=== PATIENT | female | born 2000 | race Hispanic/Latino ===

== ENCOUNTER 2022-01-17 20:47 | Emergency (ER) | payer BC ==
[2022-01-17 21:52] LABS: Urine Blood Negative (Negative); Urine Glucose Negative (Negative); Urine Protein Negative (Negative); Urine Specific Gravity 1.025 (1.005-1.030); Urine pH 5.5 (5.0-7.0)
[2022-01-17 22:04] LABS: Urine Specific Gravity/Preg 1.025 (1.005-1.030)
[2022-01-17] MEDS ORDERED: ONDANSETRON 4 MG/2 ML VIAL ONE (22:23)
[2022-01-17] MEDS ORDERED: MORPHINE 4 MG/ML SYR ONE (22:23)
[2022-01-17] MEDS ORDERED: NA CHLORIDE 0.9% 1,000 ML ONE (22:23)
[2022-01-17 22:43] LABS: Absolute Lymphocytes (CBC) 1.5 K/uL (0.7-4.9); Hematocrit 36.6 % (36.0-45.0); Lymphocytes % 16.5 % (15.3-44.8); MPV 8.3 fL (7.6-11.3); RBC Red Blood Cell Count 4.03 M/uL (3.86-4.86)
[2022-01-17 23:00] LABS: ALT/SGPT 17 U/L (12-78); AST/SGOT 10 U/L (15-37); Albumin 3.8 g/dL (3.4-5.0); Alkaline Phosphatase 46 U/L (45-117); BUN Blood Urea Nitrogen 6 mg/dL (7-18); Bicarbonate 26 mmol/L (21-32); Bilirubin Total 0.2 mg/dL (0.2-1.0); Glucose Level 94 mg/dL (74-106); Lipase 90 U/L (73-393); Potassium 4.1 mmol/L (3.5-5.1); Protein, Total 7.4 g/dL (6.4-8.2); Sodium Level 142 mmol/L (136-145)
[2022-01-17 23:30] LABS: Urine Bacteria >50 /HPF (<20); Urine Mucus 2+ /HPF (NONE SEEN); Urine RBC <5 /HPF (NONE SEEN)
[2022-01-18] MEDS ORDERED: NA CHLORIDE 0.9% 50 ML ONE (00:26)
[2022-01-18] MEDS ORDERED: CEFTRIAXONE 1000 MG/VIAL ONE (00:26)
--- NOTE | 2022-01-18 00:31 | ER ---
Nurse's Notes [facility] Name: Lesa Sanford Age: 21 yrs Sex: Female : 2000 Arrival Date: 01/17/2022 Time: 20:52 Bed 6 Private MD: Diagnosis: UTI/ Urinary tract infection, site not specified;Other ovarian cysts Presentation: 01/17 21:08 Chief complaint: Patient states: "for 2-3 days I have been having suprapubic pain and ab2 lower back pain. I also have burning with urination." Pt denies any vaginal discharge. Pt denies any blood in urine. Coronavirus screen: Vaccine status: Patient reports being unvaccinated. Client denies travel out of the [place] in the last 14 days. At this time, the client does not indicate any symptoms associated with coronavirus-19. Ebola Screen: Patient negative for fever greater than or equal to 101.5 degrees Fahrenheit, and additional compatible Ebola Virus Disease symptoms Patient denies exposure to infectious person. Patient denies travel to an Ebola-affected area in the 21 days before illness onset. No symptoms or risks identified at this time. Initial Sepsis Screen: Does the patient meet any 2 criteria? No. Patient's initial sepsis screen is negative. Does the patient have a suspected source of infection? No. Patient's initial sepsis screen is negative. Risk Assessment: Do you want to hurt yourself or someone else? Patient reports no desire to harm self or others. Onset of symptoms is unknown. 21:08 Method Of Arrival: Ambulatory ab2 21:08 Acuity: NED 3 ab2 Triage Assessment: 21:13 General: Appears in no apparent distress. uncomfortable, Behavior is calm, cooperative, ab2 appropriate for age. Pain: Complains of pain in back and suprapubic area. 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 Gait is steady, Speech is normal, Facial symmetry appears normal. Cardiovascular: No deficits noted. Denies chest pain, shortness of breath, Patient's skin is warm and dry. Respiratory: Airway is patent Respiratory effort is even, unlabored, Respiratory pattern is regular, symmetrical. GI: No deficits noted. No signs and/or symptoms were reported involving the gastrointestinal system. Abdomen is round non-distended. : Reports pain in bilateral in suprapubic area flank(s). Derm: Skin is intact, is healthy with good turgor, Skin is pink, warm \\T\\ dry. Musculoskeletal: Reports pain in low back area. 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 - Social history:: Smoking status: Patient denies any tobacco usage or history of. Screenin:33 Abuse screen: Denies threats or abuse. Nutritional screening: No deficits noted. ag7 Tuberculosis screening: No symptoms or risk factors identified. Fall Risk No fall in past 12 months (0 pts). No secondary diagnosis (0 pts). IV access (20 points). Ambulatory Aid- None/Bed Rest/Nurse Assist (0 pts). Gait- Normal/Bed Rest/Wheelchair (0 pts) Mental Status- Oriented to own ability (0 pts). Assessment: 21:59 General: Appears in no apparent distress. Behavior is calm, cooperative, appropriate ag7 for age. Pain: Complains of pain in abdomen Pain currently is 8 out of 10 on a pain scale. Quality of pain is described as aching, Pain began suddenly, Is continuous. Neuro: Level of Consciousness is awake, alert, obeys commands, Oriented to person, place, time, situation, Appropriate for age Cardiovascular: Heart tones S1 S2 present Capillary refill < 3 seconds in bilateral fingers Patient's skin is warm and dry. Respiratory: Airway is patent Trachea midline Respiratory effort is even, unlabored, Respiratory pattern is regular, symmetrical, Breath sounds are clear bilaterally. GI: Abdomen is round non-distended, Bowel sounds present X 4 quads. Abd is soft X 4 quads Reports Pain is 8 out of 10 on a pain scale. 23:10 Reassessment: Patient returned from CT, reports pain is improved at this time; aware of lp1 waiting for results. 01/18 00:21 Reassessment: Verbal order per Dr. Diego to administer Rocephin 1g IV now. lp1 Vital Signs: 01/17 21:08 BP 132 / 80; Pulse 75; Resp 17; Temp 98.6; Pulse Ox 98% ; Weight 56.7 kg; Height 4 ft. ab2 11 in. (149.86 cm); Pain 0/10; 23:15 BP 115 / 73; Pulse 86; Resp 16; Pulse Ox 99% on R/A; lp1 01/18 00:45 BP 103 / 70; Pulse 77; Resp 16; Pulse Ox 100% on R/A; lp1 01/17 21:08 Body Mass Index 25.25 (56.70 kg, 149.86 cm) ab2 ED Course: 01/17 20:52 Patient arrived in ED. bp1 21:11 Triage completed. ab2 21:14 Arm band placed on right wrist. ab2 21:33 Luisito Diego MD is Attending Physician. mh7 22:32 Inserted saline lock: 20 gauge in right antecubital area, using aseptic technique. ag7 22:33 Patient has correct armband on for positive identification. Bed in low position. Call ag7 light in reach. Side rails up X 1. 22:51 Lora Hilton RN is Primary Nurse. lp1 23:20 CT Abd/Pelvis - IV Contrast Only In Process Unspecified. EDMS 01/18 00:29 Kimberlee Escobedo MD is Referral Physician. mh7 00:45 No provider procedures requiring assistance completed. lp1 00:58 IV discontinued, No redness/swelling at site. Pressure dressing applied. lp1 Administered Medications: 01/17 22:31 Drug: NS 0.9% 1000 ml Route: IV; Rate: 1 bolus; Site: right antecubital; ag7 23:30 Follow up: IV Status: Completed infusion; IV Intake: 1000ml lp1 22:32 Drug: Zofran (Ondansetron) 4 mg Route: IVP; Site: right antecubital; ag7 23:30 Follow up: Response: No adverse reaction lp1 22:32 Drug: morphine 4 mg Route: IVP; Site: right antecubital; ag7 23:15 Follow up: Response: Pain is decreased lp1 01/18 00:28 Drug: Rocephin (cefTRIAXone) 1 grams Route: IV; Rate: per protocol; Site: right lp1 antecubital; 00:59 Follow up: IV Status: Completed infusion; IV Intake: 50ml lp1 Intake: 01/17 23:30 IV: 1000ml; Total: 1000ml. lp1 01/18 00:59 IV: 50ml; Total: 1050ml. lp1 Outcome: 00:30 Discharge ordered by . louis 00:58 Discharged to home ambulatory, with significant other. lp1 00:58 Condition: good 00:58 Discharge instructions given to patient, Instructed on discharge instructions, follow up and referral plans. medication usage, Demonstrated understanding of instructions, follow-up care, medications, Prescriptions given X 3. 00:59 Patient left the ED. lp1 Signatures: Dispatcher [employer] EDMS Lora Hilton RN RN lp1 Emmy Lane Maurice, MD MD 7 Ramiro Pham Angela, RN RN ag7
--- NOTE | 2022-01-18 00:31 | EDPHYS ---
[facility] Name: Lesa Sanford Age: 21 yrs Sex: Female : 2000 Arrival Date: 01/17/2022 Time: 20:52 Bed 6 Private MD: ED Physician Luisito Diego HPI: 01/17 22:05 This 21 yrs old Female presents to ER via Ambulatory with complaints of mh7 Vaginal Pain. 22:18 The patient presents with abdominal pain in the lower abdomen. Onset: The mh7 symptoms/episode began/occurred 1 week(s) ago. The symptoms do not radiate. Associated signs and symptoms: Pertinent positives: dysuria, lower back pain, Pertinent negatives: nausea, vomiting, and diarrhea, anorexia, blood in stools, chest pain, constipation, diarrhea, fever, headache, hematuria, palpitations, shortness of breath, vaginal discharge, vomiting, vomiting blood. The symptoms are described as intermittent, vague, waxing/waning. Modifying factors: The symptoms are alleviated by nothing, the symptoms are aggravated by nothing. Severity of pain: At its worst the pain was moderate 3 day(s) ago, in the emergency department the pain is unchanged. 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 - Social history:: Smoking status: Patient denies any tobacco usage or history of. ROS: 22:18 Constitutional: Negative for fever, chills, and weight loss, Eyes: Negative for injury, mh7 pain, redness, and discharge, ENT: Negative for injury, pain, and discharge, Neck: Negative for injury, pain, and swelling, Cardiovascular: Negative for chest pain, palpitations, and edema, Respiratory: Negative for shortness of breath, cough, wheezing, and pleuritic chest pain, MS/Extremity: Negative for injury and deformity, Skin: Negative for injury, rash, and discoloration, Neuro: Negative for headache, weakness, numbness, tingling, and seizure, Psych: Negative for depression, anxiety, suicide ideation, homicidal ideation, and hallucinations, Allergy/Immunology: Negative for hives, rash, and allergies, Endocrine: Negative for neck swelling, polydipsia, polyuria, polyphagia, and marked weight changes, Hematologic/Lymphatic: Negative for swollen nodes, abnormal bleeding, and unusual bruising. Exam: 22:18 Head/Face: Normocephalic, atraumatic. Eyes: Pupils equal round and reactive to light, mh7 extra-ocular motions intact. Lids and lashes normal. Conjunctiva and sclera are non-icteric and not injected. Cornea within normal limits. Periorbital areas with no swelling, redness, or edema. Neck: Trachea midline, no thyromegaly or masses palpated, and no cervical lymphadenopathy. Supple, full range of motion without nuchal rigidity, or vertebral point tenderness. No Meningismus. Chest/axilla: Normal chest wall appearance and motion. Nontender with no deformity. No lesions are appreciated. Cardiovascular: Regular rate and rhythm with a normal S1 and S2. No gallops, murmurs, or rubs. Normal PMI, no JVD. No pulse deficits. Respiratory: Lungs have equal breath sounds bilaterally, clear to auscultation and percussion. No rales, rhonchi or wheezes noted. No increased work of breathing, no retractions or nasal flaring. Skin: Warm, dry with normal turgor. Normal color with no rashes, no lesions, and no evidence of cellulitis. MS/ Extremity: Pulses equal, no cyanosis. Neurovascular intact. Full, normal range of motion. Neuro: Awake and alert, GCS 15, oriented to person, place, time, and situation. Cranial nerves II-XII grossly intact. Motor strength 5/5 in all extremities. Sensory grossly intact. Cerebellar exam normal. Normal gait. 22:18 Constitutional: The patient appears in no acute distress, alert, awake, uncomfortable. 22:18 Abdomen/GI: Inspection: abdomen appears normal, Bowel sounds: normal, in all quadrants, mh7 Palpation: moderate abdominal tenderness, in the suprapubic area and left lower quadrant, mass, is not appreciated, rebound tenderness, is not appreciated, voluntary guarding, is not appreciated, involuntary guarding, is not appreciated, no appreciated organomegaly, Rectal exam: the exam is deferred, because of patient request, Indicators: McBurney's point is not tender, Piedra's sign is negative, Rovsing's sign is negative, Obturator sign is negative, Psoas sign is negative, Liver: no appreciated palpable abnormalities, Hernia: not appreciated. 22:18 Back: No spinal tenderness. No costovertebral tenderness. Full range of motion. 7 22:18 Psych: Awake, alert, with orientation to person, place and time. Behavior, mood, and affect are within normal limits. 22:18 : Pelvic Exam: The exam is refused by the patient/guardian. The risks and consequences are understood by the patient. Vital Signs: 21:08 BP 132 / 80; Pulse 75; Resp 17; Temp 98.6; Pulse Ox 98% ; Weight 56.7 kg; Height 4 ft. ab2 11 in. (149.86 cm); Pain 0/10; 23:15 BP 115 / 73; Pulse 86; Resp 16; Pulse Ox 99% on R/A; lp1 01/18 00:45 BP 103 / 70; Pulse 77; Resp 16; Pulse Ox 100% on R/A; lp1 01/17 21:08 Body Mass Index 25.25 (56.70 kg, 149.86 cm) ab2 MDM: 00:28 Differential diagnosis: appendicitis, bowel obstruction, diverticulitis, Ectopic mh7 , Endometriosis, non-specific abd pain, Pyelonephritis, Ureterolithiasis, urinary tract infection. Data reviewed: vital signs, nurses notes, lab test result(s), CBC, electrolytes, urinalysis, UPT: negative radiologic studies, CT scan. Data interpreted: Pulse oximetry: on room air is 99 %. Interpretation: normal. Counseling: I had a detailed discussion with the patient and/or guardian regarding: the historical points, exam findings, and any diagnostic results supporting the discharge/admit diagnosis, lab results, radiology results, the need for outpatient follow up, to return to the emergency department if symptoms worsen or persist or if there are any questions or concerns that arise at home. Response to treatment: the patient's symptoms have resolved after treatment, the patient's blood pressure is in an acceptable range, mental status has returned to baseline, the patient no longer shows bradycardia, the patient is not short of breath, the patient is not tachycardic, the patient's pain is gone, the patient's temperature has normalized. 00:30 Patient medically screened. [facility] 01/17 21:52 Order name: Urine Dipstick-Ancillary; Complete Time: 21:59 [facility] 01/17 22:02 Order name: CBC with Diff; Complete Time: 23:01 [facility] 01/17 22:02 Order name: CMP; Complete Time: 23:16 [facility] 01/17 22:02 Order name: Lipase; Complete Time: 23:16 [facility] 01/17 22:02 Order name: Urine Microscopic Only; Complete Time: 23:57 [facility] 01/17 22:02 Order name: Urine --Ancillary (enter results) 01/17 21:44 Order name: Urine Dipstick-Ancillary (obtain specimen); Complete Time: 22:51 [facility] 01/17 22:02 Order name: CT Abd/Pelvis - IV Contrast Only [facility] 01/17 22:04 Order name: Urine --Ancillary; Complete Time: 22:18 [facility] 01/17 23:33 Order name: Urine Culture [facility] 01/17 21:44 Order name: Urine Test (obtain specimen); Complete Time: 22:51 [facility] 01/17 22:02 Order name: IV Saline Lock; Complete Time: 22:32 [facility] 01/17 22:02 Order name: Labs collected and sent; Complete Time: 22:32 [facility] Administered Medications: 01/17 22:31 Drug: NS 0.9% 1000 ml Route: IV; Rate: 1 bolus; Site: right antecubital; 7 23:30 Follow up: IV Status: Completed infusion; IV Intake: 1000ml lp1 22:32 Drug: Zofran (Ondansetron) 4 mg Route: IVP; Site: right antecubital; 7 23:30 Follow up: Response: No adverse reaction 1 22:32 Drug: morphine 4 mg Route: IVP; Site: right antecubital; ag7 23:15 Follow up: Response: Pain is decreased [facility] 01/18 00:28 Drug: Rocephin (cefTRIAXone) 1 grams Route: IV; Rate: per protocol; Site: right lp1 antecubital; 00:59 Follow up: IV Status: Completed infusion; IV Intake: 50ml lp1 Disposition Summary: 01/18/22 00:30 Discharge Ordered Location: Home [facility] Problem: new [facility] Symptoms: have improved [facility] Condition: Stable [facility] Diagnosis - UTI/ Urinary tract infection, site not specified [facility] - Other ovarian cysts [facility] Followup: [facility] - With: Private Physician - When: 1 - 2 days - Reason: Worsening of condition, Recheck today's complaints, Continuance of care, Re-evaluation by your physician Followup: [facility] - With: Kimberlee Escobedo MD - When: 1 - 2 days - Reason: Worsening of condition, Recheck today's complaints Discharge Instructions: - Discharge Summary Sheet [facility] - Urinary Tract Infection, Adult, [id number] [facility] - Ovarian Cyst, [id number] [facility] Forms: - Medication Reconciliation Form [facility] - Thank You Letter [facility] - Antibiotic Education [facility] - Prescription Opioid Use [facility] - Work release form lp1 Prescriptions: - Pyridium 200 mg Oral Tablet - take 1 tablet by ORAL route every 8 hours for 2 days; 6 tablet; Refills: 0, [facility] Product Selection Permitted - Cipro 500 mg Oral Tablet - take 1 tablet by ORAL route every 12 hours for 7 days; 14 tablet; Refills: 0, [facility] Product Selection Permitted - Ibuprofen 600 mg Oral Tablet - take 1 tablet by ORAL route every 8 hours As needed take with food; 15 tablet; [facility] Refills: 0, Product Selection Permitted Signatures: Dispatcher [employer] Lora Eubanks RN RN lp1 Luisito Diego MD MD 7 Ramiro Pham Angela, RN RN 7
[2022-01-18 01:05] VITALS: TEMP 98.6
[2022-01-18 01:08] VITALS: BP 103/70; O2SAT 100
--- NOTE | 2022-01-19 12:12 | RAD REPORT ---
EXAM DESCRIPTION: CT ABDOMEN AND PELVIS WITH INTRAVENOUS CONTRAST CLINICAL HISTORY: The patient is 21 years old and is Female; Abdominal pain, acute [facility] MAIN TECHNIQUE: Axial computed tomography images of the abdomen and pelvis with intravenous contrast. S agittal and coronal reformatted images were created and reviewed. This CT exam was performed using one or more of the following dose reduction techniques: automated exposure control, adjustment of t he mA and/or kV according to patient size, and/or use of iterative reconstruction technique. DICOM images are available. RADIATION DOSE: Total exam DLP is 926 mGycm. COMPARISON: No relevant prior studies available. FINDINGS: LUNG BASES: Lung bases are unremarkable. ABDOMEN: LIVER: Unremarkable. No discrete intrahepatic lesion noted. GALLBLADDER AND BILE DUCTS: Unremarkable. No calcified stones. No ductal dilation. PANCREAS: Unremarkable. No ductal dilation. No discrete lesion. No acute marychuy-pancreatic infla mmatory change. SPLEEN: Unremarkable. No splenomegaly. No splenic lesion noted. ADRENALS: Unremarkable. No mass. KIDNEYS AND URETERS: Unremarkable. No solid mass. No hydronephrosis. STOMACH AND BOWEL: There is no evidence of diverticulitis. There is no evidence of bowel obstruc tion. PELVIS: APPENDIX: The appendix is visualized and is normal in appearance. BLADDER: The urinary bladder is underdistended. REPRODUCTIVE: Multiple bilateral ovarian follicles noted. Probable ruptured corpus luteal cyst in the RIGHT ovary. ABDOMEN and PELVIS: INTRAPERITONEAL SPACE: There is mild free fluid in the pelvis, which is most likely physiologic in nature. No free air. BONES/JOINTS: No acute fracture. SOFT TISSUES: Unremarkable. VASCULATURE: Unremarkable. No abdominal aortic aneurysm. LYMPH NODES: Unremarkable. No significant retroperitoneal or pelvic lymphadenopathy. IMPRESSION: 1. Multiple bilateral ovarian follicles noted. Probable ruptured corpus luteal cyst in the RIGHT ovary. 2. No acute inflammatory process is identified in the abdomen or pelvis. Normal appendix. Electronically signed by: Uriel Dietrich MD 01/17/2022 11:42 PM CDT Due to temporary technical issues with the PACS/Fluency reporting system, reports are being signed by the in house radiologist without review as a courtesy to ensure prompt reporting. The interpreting r adiologist is fully responsible for the content of the report.
== END 2022-01-18 00:59 | disposition home or self-care (01) ==
LOC: ER 20:47
DX: N39.0 Urinary tract infection, site not specified (principal); N83.299 Other ovarian cyst, unspecified side
CPT/HCPCS: 96365; 96361; 87088; 85025; 87086; 36415; 81025; 83690; 80053; 74177; 96375; 99284; Q9967; J7030; J2405; 81003; 81015

== ENCOUNTER 2023-12-19 01:25 | Emergency (ER) | payer BC ==
--- OUTSIDE RECORDS SUMMARY | 2023-12-19 01:27 | XMS REPORT | Continuity of Care Document ---
Author Name Unknown Address [address] [facility] [address] [place] [address] [facility] thconnect Address [address] [facility] [address] [place] [address] Care Team Providers Care Consulting Solution Manager Name Role Phone Anel Bella Attending Clinician Unavailable Payers Payer Name Policy Type Policy Number Effective Date Expirati on Date Source [facility] [id number] [facility] Problems Condition Name Condition Details Condition Category Status Onset Date Resolution Date Last Treatment Date Treating Clinician Comments Source Elevated fasting lipid profile Elevated lipids Problem Active [facility] Asthma Asthma Problem Active [facility] Social History Social Habit Start Date Stop Date Quantity Comments Source Sex Assigned At [facility] History of Tobacco Use [facility] Smoking Status Start Date Stop Date Source Never Smoker [facility] Vital Signs Vital Name Observation Time Observation Value Comments S ource height 2022-02-26 08:00:00 59.00 [in_i] Com [facility] weight 2022-02-26 08:00:00 126.6 [lb_av] Co [facility] bmi 2022-02-26 08:00:00 25.57 kg/m2 Comm [facility] height 2022 10:40:00 59.00 [in_i] Com [facility] weight 2022 10:40:00 126.6 [lb_av] [facility] temperature 2022 10:40:00 97.5 [degF] Com mon [facility] bmi 2022 10:40:00 25.57 kg/m2 Comm [facility] oximetry 2022 10:40:00 99 % [facility] respiratory rate 2022 10:40:00 17 /min [facility] blood pressure systolic 2022 10:40:00 127 mm[Hg] [facility] blood pressure diastolic 2022 10:40:00 69 mm[Hg] [facility] Encounters Start Date/Time End Date/Time Encounter Type Admission Type Attending [facility] Emergency [facility] Facility Care Department Encounter ID Source 2022-03-03 15:53:01 Outpatient Anel Bella [facility] [id number] [facility] 2022-02-24 15:30:01 Outpatient Anel Bella [facility] [id number] [facility] 2022 10:08:03 Outpatient Anel Bella [facility] [id number] [facility] 2022-02-26 00:00:00 2022-02-26 00:00:00 OFFICE VISIT EST PT LEVEL [id number] [facility] 2022 00:00:00 2022 00:00:00 PREV VISIT EST AGE 18-39 [facility] [id number] [facility]
[2023-12-19] MEDS ORDERED: predniSONE 20 MG TAB ONE (02:11)
[2023-12-19] MEDS ORDERED: DIPHENHYDRAMINE 25 MG TAB/CAP ONE (02:12)
[2023-12-19] MEDS ORDERED: FAMOTIDINE 20 MG TAB ONE (02:12)
--- NOTE | 2023-12-19 03:19 | ER ---
Nurse's Notes [facility] Name: Lesa Sanford Age: 23 yrs Sex: Female : 2000 Arrival Date: 12/19/2023 Time: 01:25 Bed 17 Private MD: Diagnosis: Localized edema-right foot Presentation: 12/18 01:58 Chief complaint: Patient states: I was at a cook out and something bit me on the foot. jb4 Coronavirus screen: At this time, the client does not indicate any symptoms associated with coronavirus-19. Ebola Screen: No symptoms or risks identified at this time. Onset: The symptoms/episode began/occurred gradually. Anaphylaxis evaluation, no signs or symptoms of anaphylaxis were noted. Initial Sepsis Screen: Does the patient meet any 2 criteria? No. Patient's initial sepsis screen is negative. Does the patient have a suspected source of infection? No. Patient's initial sepsis screen is negative. Risk Assessment: Do you want to hurt yourself or someone else? Patient reports no desire to harm self or others. Onset of symptoms was December 19, 2023. Transition of care: patient was not received from another setting of care. 01:58 Method Of Arrival: Ambulatory jb4 01:58 Acuity: NED 4 jb4 Triage Assessment: 02:00 General: Appears in no apparent distress. comfortable, Behavior is calm, cooperative, jb4 appropriate for age. Pain: Denies pain. EENT: No signs and/or symptoms were reported regarding the EENT system. Neuro: Level of Consciousness is awake, alert, obeys commands, Oriented to person, place, time, situation. Cardiovascular: Patient's skin is warm and dry. Respiratory: Airway is patent Respiratory effort is even, unlabored, Respiratory pattern is regular, symmetrical. GI: No signs and/or symptoms were reported involving the gastrointestinal system. : No signs and/or symptoms were reported regarding the genitourinary system. Derm: Skin is intact, Skin is pink, warm \T\ dry. Musculoskeletal: Circulation, motion, and sensation intact. Range of motion: intact in all extremities. 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 - Social history:: Smoking status: Patient denies any tobacco usage or history of. Patient uses alcohol, only on a social basis. Screenin:52 [facility] ED Fall Risk Assessment (Adult) History of falling in the last 3 months, pf1 including since admission No falls in past 3 months (0 pts) Confusion or Disorientation No (0 pts) Intoxicated or Sedated No (0 pts) Impaired Gait No (0 pts) Mobility Assist Device Used No (0 pt) Altered Elimination No (0 pt) Score/Fall Risk Level 0 - 2 = Low Risk Oriented to surroundings, Maintained a safe environment, Educated pt \T\ family on fall prevention, incl call for assistance when getting out of bed, Assessed \T\ reinforced patient's understanding of fall precautions, Provided non-skid footwear, Hourly rounding (assess needs \T\ fall precautionary measures) done, Used ambulatory aids as needed (educated on \T\ assisted with), Used gait belt as appropriate. Abuse screen: Denies threats or abuse. Nutritional screening: No deficits noted. Tuberculosis screening: No symptoms or risk factors identified. Assessment: 01:52 General: Appears in no apparent distress. comfortable, well groomed, well developed, pf1 Behavior is calm, cooperative, appropriate for age, quiet. 01:52 Pain: Denies pain. Neuro: No deficits noted. Level of Consciousness is awake, alert, pf1 obeys commands, Oriented to person, place, time, situation. Cardiovascular: No deficits noted. Capillary refill < 3 seconds Patient's skin is warm and dry. Respiratory: No deficits noted. Airway is patent Respiratory effort is even, unlabored, Respiratory pattern is regular, symmetrical, Breath sounds are clear bilaterally. GI: No deficits noted. No signs and/or symptoms were reported involving the gastrointestinal system. : No deficits noted. No signs and/or symptoms were reported regarding the genitourinary system. EENT: No deficits noted. No signs and/or symptoms were reported regarding the EENT system. Derm: Reports rash to bilateral feet and swelling to right foot. Musculoskeletal: Reports swelling to right foot. 02:50 Reassessment: Patient appears in no apparent distress at this time. Patient and/or pf1 family updated on plan of care and expected duration. Pain level reassessed. Patient is alert, oriented x 3, equal unlabored respirations, skin warm/dry/pink. Patient states symptoms have improved. 03:40 Reassessment: Patient appears in no apparent distress at this time. Patient and/or pf1 family updated on plan of care and expected duration. Pain level reassessed. Patient is alert, oriented x 3, equal unlabored respirations, skin warm/dry/pink. Patient states feeling better. Patient states symptoms have improved. Vital Signs: 01:58 BP 134 / 96; Pulse 72; Resp 16; Pulse Ox 100% on R/A; Weight 56.7 kg (R); Height 4 ft. jb4 11 in. ; Pain 0/10; 03:00 BP 112 / 61; Pulse 64; Resp 16; Pulse Ox 99% ; Pain 0/10; pf1 03:30 BP 109 / 73; Pulse 65; Resp 16; Temp 97.8; Pulse Ox 100% on R/A; Pain 0/10; pf1 01:58 Body Mass Index 25.25 (56.70 kg, 149.86 cm) jb4 01:58 Pain Scale: Adult jb4 03:00 Pain Scale: Adult pf1 03:30 Pain Scale: Adult pf1 ED Course: 01:31 Patient arrived in ED. gm2 01:32 Paul Martinez PA is PHCP. cp 01:32 Paul Drake MD is Attending Physician. cp 01:52 Patient has correct armband on for positive identification. Placed in gown. Bed in low pf1 position. Call light in reach. 01:52 No provider procedures requiring assistance completed. pf1 02:00 Triage completed. jb4 02:00 Arm band placed on right wrist. jb4 03:05 US Extremity Venous Unilateral Ltd In Process Unspecified. EDMS 03:42 Provided Education on: prescriptions. pf1 03:42 Patient did not have IV access during this emergency room visit. pf1 Administered Medications: 02:19 Drug: predniSONE PO 60 mg PO once Route: PO; pf1 03:00 Follow up: Response: No adverse reaction; Marked relief of symptoms pf1 02:19 Drug: diphenhydrAMINE PO 50 mg PO once Route: PO; pf1 03:00 Follow up: Response: No adverse reaction; Marked relief of symptoms pf1 02:19 Drug: Famotidine PO 20 mg PO once Route: PO; pf1 03:00 Follow up: Response: No adverse reaction; Marked relief of symptoms pf1 Medication: 03:42 VIS not applicable for this client. pf1 Outcome: 03:18 Discharge ordered by . cp 03:41 Discharged to home ambulatory, with family, pf1 03:41 Condition: improved 03:41 Discharge instructions given to patient, family, Instructed on discharge instructions, follow up and referral plans. Demonstrated understanding of instructions, follow-up care, medications, Prescriptions given X 2, 03:42 Patient left the ED. pf1 Signatures: Dispatcher [employer] EDMS Paul Martinez PA PA cp Bryson, James, RN RN jb4 Ivone Boston RN RN pf1 Luann Nguyen gm2
--- NOTE | 2023-12-19 03:19 | EDPHYS ---
Physician Documentation [facility] Name: Lesa Sanford Age: 23 yrs Sex: Female : 2000 Arrival Date: 12/19/2023 Time: 01:25 Bed 17 Private MD: ED Physician Paul Drake HPI: 12/18 02:05 This 23 yrs old Female presents to ER via Ambulatory with complaints of cp Allergic Reaction. 02:05 The patient presents with swelling of left foot. Onset: The symptoms/episode cp began/occurred today. Associated signs and symptoms: Pertinent negatives: fever, shortness of breath, sore throat, difficulty swallowing. Possible causes: mosquito bite. At home the patient or guardian has treated the symptoms with nothing. Severity of symptoms: in the emergency department the symptoms are unchanged despite home interventions. 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 - Social history:: Smoking status: Patient denies any tobacco usage or history of. Patient uses alcohol, only on a social basis. ROS: 02:10 MS/extremity: Positive for swelling, of the right foot, cp 02:10 Constitutional: Negative for body aches, chills, fever, cp 02:10 ENT: Negative for sore throat, difficulty swallowing, difficulty handling secretions, 02:10 Respiratory: Negative for cough, shortness of breath, wheezing, 02:10 All other systems are negative, Exam: 02:10 Constitutional: The patient appears in no acute distress, alert, awake, non-toxic, well cp developed, well nourished, 02:10 Head/Face: Normocephalic, atraumatic. cp 02:10 Cardiovascular: Rate: normal, 02:10 Respiratory: the patient does not display signs of respiratory distress, Respirations: normal, no use of accessory muscles, no retractions, Breath sounds: are clear throughout, 02:10 Musculoskeletal/extremity: Extremities: noted in the right foot: swelling, mild redness noted, skin intact, Perfusion: the extremity is normally perfused throughout, the right foot Sensation intact. Vital Signs: 01:58 BP 134 / 96; Pulse 72; Resp 16; Pulse Ox 100% on R/A; Weight 56.7 kg (R); Height 4 ft. jb4 11 in. ; Pain 0/10; 03:00 BP 112 / 61; Pulse 64; Resp 16; Pulse Ox 99% ; Pain 0/10; pf1 03:30 BP 109 / 73; Pulse 65; Resp 16; Temp 97.8; Pulse Ox 100% on R/A; Pain 0/10; pf1 01:58 Body Mass Index 25.25 (56.70 kg, 149.86 cm) jb4 01:58 Pain Scale: Adult jb4 03:00 Pain Scale: Adult pf1 03:30 Pain Scale: Adult pf1 MDM: 01:53 Patient medically screened. cp 03:17 Data reviewed: vital signs, nurses notes, radiologic studies, ultrasound. cp 03:17 Differential diagnosis: localized allergic reaction, dvt, cellulitis. I considered the cp following discharge prescriptions or medication management in the emergency department Medications were administered in the Emergency Department. See MAR. Counseling: I had a detailed discussion with the patient and/or guardian regarding the historical points, exam findings, and any diagnostic results supporting the discharge/admit diagnosis, radiology results, to return to the emergency department if symptoms worsen or persist or if there are any questions or concerns that arise at home. Response to treatment: the patient's symptoms have mildly improved after treatment, and as a result, I will discharge patient. 12/18 02:15 Order name: US Extremity Venous Unilateral Ltd cp Administered Medications: 02:19 Drug: predniSONE PO 60 mg PO once Route: PO; pf1 03:00 Follow up: Response: No adverse reaction; Marked relief of symptoms pf1 02:19 Drug: diphenhydrAMINE PO 50 mg PO once Route: PO; pf1 03:00 Follow up: Response: No adverse reaction; Marked relief of symptoms pf1 02:19 Drug: Famotidine PO 20 mg PO once Route: PO; pf1 03:00 Follow up: Response: No adverse reaction; Marked relief of symptoms pf1 Disposition Summary: 12/19/23 03:18 Discharge Ordered Notes: Location: Home cp Problem: new cp Symptoms: have improved cp Condition: Stable cp Diagnosis - Localized edema - right foot cp Followup: cp - With: Private Physician - When: 2 - 3 days - Reason: Worsening of condition Discharge Instructions: - Discharge Summary Sheet cp - Allergies, Adult cp Forms: - Medication Reconciliation Form cp - Thank You Letter cp - Antibiotic Education cp - Prescription Opioid Use cp - Patient Portal Instructions cp - Leadership Thank You Letter cp - Work release form pf1 Prescriptions: - Zyrtec 10 mg Oral Tablet - take 1 tablet ORAL route once daily As needed; 20 tablet; Refills: 0, Product cp Selection Permitted - Prednisone 20 mg Oral Tablet - take 2 tablets ORAL route once daily for 5 days; 10 tablet; Refills: 0, Product cp Selection Permitted Signatures: Dispatcher [employer] EDMS Paul Martinez PA PA cp Bryson, James, RN RN jb4 Ivone Boston RN RN pf1
[2023-12-19 08:16] VITALS: BP 134/96; O2SAT 100
--- NOTE | 2023-12-19 16:00 | RAD REPORT ---
EXAM DESCRIPTION: US - Extremity Venous Uni Ltd - 12/19/2023 3:04 am CLINICAL HISTORY: 23 years Female SWELLING TECHNIQUE: Grayscale and color Doppler images of the deep veins of the right lower extremity were pe rformed on 12/19/2023 at 2: 54 AM. COMPARISON: None. FINDINGS: Grayscale and color Doppler images of the deep veins of the right lower extremity was perf ormed. The grayscale images reveal normal compressibility of the deep veins. The Doppler images revea l normal flow, phasicity with respiration and normal augmentation with compression. The color flow im ages reveal normal saturation of flow within the deep veins of the right lower extremity. No intralum inal echoes are identified to suggest nonocclusive thrombus. No additional abnormalities are identified. IMPRESSION: No evidence of deep venous thrombosis in the right lower extremity. Electronically signed by: Cydney Espinal DO 12/19/2023 05:18 AM CDT Due to temporary technical issues with the PACS/Fluency reporting system, reports are being signed by the in house radiologists without review as a courtesy to insure prompt reporting. The interpreting radiologist is fully responsible for the content of the report
== END 2023-12-19 03:42 | disposition home or self-care (01) ==
LOC: ER 01:25
DX: R60.0 Localized edema (principal); Z91.038 Other insect allergy status
CPT/HCPCS: 93971; 99283; J7512